=== PATIENT | female | born 1995 | race Caucasian/White ===

== ENCOUNTER 2024-11-07 05:35 | Emergency (ER) | payer MEDICAID ==
[~2024-11-07] VITALS: Ht 182.9 cm; Wt 83.9 kg
[2024-11-07] MEDS ORDERED: TRAZODONE HCL50 MG PO (05:52)
[2024-11-07] MEDS ORDERED: METHYLPHENIDATE20 M1 PO (05:53)
[2024-11-07] MEDS ORDERED: CLEOCIN HCL300 MG PO (06:08)
[2024-11-07] MEDS ORDERED: clindamycin HCL 300 MG HOME.PACK PO ONE (06:15)
[2024-11-07 06:21] VITALS: BP 132/92
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
== END 2024-11-07 06:22 | disposition home or self-care (01) ==
LOC: ED 05:35
DX: R68.84 Jaw pain (principal); Z88.0 Allergy status to penicillin; Z79.899 Other long term (current) drug therapy
CPT/HCPCS: 99283

== ENCOUNTER 2025-01-13 07:12 | Emergency (ER) | payer OTHER ==
[~2025-01-13] VITALS: Ht 182.9 cm; Wt 77.1 kg
[~2025-01-13 07:12] MED LIST: CLEOCIN HCL300 MG PO; METHYLPHENIDATE20 M1 PO; TRAZODONE HCL50 MG PO
[2025-01-13] MEDS ORDERED: TRAMADOL HCL 50 MG TAB PO ONE (07:45)
[2025-01-13] MEDS ORDERED: ACETAMINOPHEN 500 MG TAB PO ONE (07:45)
[2025-01-13] MEDS ORDERED: KETOROLAC TROMETHAMINE 30 MG/ML VIAL IM ONE (10:30)
[2025-01-13] MEDS ORDERED: PROMETHAZINE HCL 50 MG/ML SDV IM ONE (10:30)
[2025-01-13] MEDS ORDERED: TRAMADOL HCL50 MG PO (11:08)
[2025-01-13] MEDS ORDERED: PREDNISONE20 MG PO (11:08)
[2025-01-13 11:15] VITALS: BP 130/83
== END 2025-01-13 11:15 | disposition home or self-care (01) ==
LOC: ED 07:12
DX: M51.16 Intervertebral disc disorders with radiculopathy, lumbar region (principal); Z88.0 Allergy status to penicillin; Z79.899 Other long term (current) drug therapy
CPT/HCPCS: 72131; 84703; 96372; 99284-25; A9270; J1885; J2550

== ENCOUNTER 2025-06-07 01:49 | Emergency (ER) | payer OTHER ==
[~2025-06-07] VITALS: Ht 182.9 cm; Wt 79.6 kg
[~2025-06-07 01:49] MED LIST changes: +PREDNISONE20 MG PO; +TRAMADOL HCL50 MG PO
[2025-06-07 02:33] LABS: BASOPHILS 0.7 % (0.1-1.2); EOSINOPHILS 6.3 % (0.7-5.8); LYMPHOCYTES 32.1 % (19.3-51.7); MCH 33.0 PG (25.6-32.2); MCHC 34.0 g/dL (32.2-35.5); MCV 96.9 fL (79.4-94.8); MONOCYTES 5.3 % (4.7-12.5); NEUTROPHILS 55.3 % (34.0-71.1); RBC 4.52 M/uL (3.93-5.22)
[2025-06-07 02:47] LABS: ALCOHOL, MEDICAL 219 ng/dL (<3); ALT (SGPT) 21 U/L (14-59); AST (SGOT) 17 U/L (15-37); GLOMERULAR FILTRATION RATE,EST 84 mL/min (>60); PROTEIN, TOTAL 7.6 g/dL (6.4-8.2); TSH, 3RD GENERATION 2.388 uIU/mL (0.358-3.740); UREA NITROGEN 15 mg/dL (7-18)
[2025-06-07 06:37] LABS: AMPHETAMINES, URINE POSITIVE (NEGATIVE); BARBITURATES, URINE NEGATIVE (NEGATIVE); BENZODIAZEPINE, URINE NEGATIVE (NEGATIVE); CANNABINOID, URINE NEGATIVE (NEGATIVE); ECSTASY, URINE POSITIVE (NEGATIVE); FENTANYL, URINE NEGATIVE (NEGATIVE); METHADONE, URINE NEGATIVE (NEGATIVE); OPIATES, URINE NEGATIVE (NEGATIVE); OXYCODONE, URINE NEGATIVE (NEGATIVE); PHENCYCLIDINE, URINE NEGATIVE (NEGATIVE)
[2025-06-07 07:06] LABS: COCAINE, URINE POSITIVE (NEGATIVE)
[2025-06-07 08:07] VITALS: BP 120/79
== END 2025-06-07 08:09 | disposition home or self-care (01) ==
LOC: ED 01:49
PROVIDERS: Internal Medicine
DX: F10.129 Alcohol abuse with intoxication, unspecified (principal); F19.10 Other psychoactive substance abuse, uncomplicated; R45.851 Suicidal ideations
CPT/HCPCS: 36415; 80053; 80307; 84443; 84703; 85025; 99285; G0480